=== PATIENT | female | born 1960 | race Caucasian/White ===

== ENCOUNTER 2018-08-09 16:07 | Emergency (ER) | payer OTHER ==
[2018-08-09 16:52] VITALS: BP 120/69
[2018-08-09] MEDS ORDERED: HYDROcodone/ACETAMIN 5-325 MG* 1 TAB PO ONE (17:07)
--- NOTE | 2018-08-09 18:04 | UC ---
Knee Pain HPI - HPI Summary HPI Summary: 58 year old female present with right knee pain. States she was at work and moved suddenly and pushed a coworker to avoid being hit by a falling plate glass window causing her to twist her right knee. States she felt something "pop " in the back of her knee, had sudden severe pain, and fell to floor unable to support her weight. She has been unable to bear weight since the injury. Complains of severe pain especially if she tries to extend the knee. She took ibuprofen 600 mg without relief from pain. Denies numbness or tingling. - History of Current Complaint Chief Complaint: UCLowerExtremity Stated Complaint: WC-RT KNEE INJURY Time Seen by Provider: 08/09/18 16:52 Hx Obtained From: Patient Hx Last Menstrual Period: n/a ?: No Onset/Duration: Sudden Onset Severity Initially: Moderate Severity Currently: Moderate Pain Intensity: 7 Character: Sharp, Aching Aggravating Factor(s): Movement Alleviating Factor(s): Nothing Associated Signs And Symptoms: Negative: Swelling, Redness, Bruising, Numbness, Tingling - Allergies/Home Medications Allergies/Adverse Reactions: Allergies Allergy/AdvReac Type Severity Reaction Status Date / Time Penicillins Allergy Swelling Verified 08/09/18 16:40 Of Face,Lips,& Throat PMH/Surg Hx/FS Hx/Imm Hx Previously Healthy: Yes - Denies significant PMH - Surgical History Surgical History: Yes Surgery Procedure, Year, and Place: c-sect x 3 - Family History Family History: Noncontributory - Social History Occupation: Employed Full-time Lives: With Family Alcohol Use: Occasionally Substance Use Type: None Smoking Status (MU): Never Smoked Tobacco Review of Systems Skin: Negative Respiratory: Negative Cardiovascular: Negative Neurovascular: Negative Musculoskeletal: Other: - See HPI Neurological: Negative Is Patient Immunocompromised?: No All Other Systems Reviewed And Are Negative: Yes Physical Exam Triage Information Reviewed: Yes Appearance: Well-Appearing, No Pain Distress, Obese Vital Signs: Initial Vital Signs Temp 97.8 F 08/09/18 16:42 Pulse 76 08/09/18 16:42 Resp 14 08/09/18 16:42 BP 120/69 08/09/18 16:42 Pulse Ox 98 08/09/18 16:42 Vital Signs Reviewed: Yes Respiratory: Positive: No respiratory distress Cardiovascular: Positive: Pulses Normal, Brisk Capillary Refill Musculoskeletal: Positive: No Edema, ROM Limited @ - right knee d/t pain, Other : - Tenderness to posterior right knee. No crepitus. Pain with passive ROM especially extension. No erythema, ecchymosis, or gross deformity. Neurological: Positive: Alert, Other: - Sensation intact distally. Skin Exam: Normal Diagnostics - Radiology No standard instances Radiology Interpretation Completed By: ED Physician - No acute process., Radiologist Summary of Radiographic Findings: Patient Name: MEAGHAN BEST Medical Record#: [id number]. Ordering Physician: Amari Cedillo NP Acct.#: [id number]. : 1960 Age: 58 Sex: F Location: [facility] [place]. Exam Date: 1706 ADM Status: DEP ER. Order Information: KNEE RIGHT 4+ VWS. Accession Number: [id number]. CPT: 54953. INDICATION: Right knee injury. TECHNIQUE: 4 views of the right knee were obtained. FINDINGS: The bones are in normal alignment. No joint effusion or fracture is seen. Joint spaces appear maintained. IMPRESSION: NO EVIDENCE FOR FRACTURE. Knee Pain Course/Dx - Course Course Of Treatment: 58 year old female with twisting injury to right knee. Tenderness to posterior knee with minimal swelling. Significant pain with extension and patient unable to bear weight. X-ray negative for osseous injury. Suspect ligamental injury. Patient was placed in a knee immobilizer and provided with crutches to remain non-weightbearing. Recommend conservative treatment with NSAIDs and RICE with hydrocodone-acetaminophen 5/325 PRN severe pain. She is to follow up with orthopedic surgery in 7 days for evaluation and treatment. Warning symptoms reviewed. Patient verbalizes understanding and agrees with POC. - Differential Dx/Diagnosis Differential Diagnosis/HQI/PQRI: Dislocation, Fracture (Closed), Sprain Provider Diagnoses: right knee pain Discharge - Sign-Out/Discharge Documenting (check all that apply): Patient Departure All imaging exams completed and their final reports reviewed: Yes - Discharge Plan Condition: Stable Disposition: HOME Prescriptions: Hydrocodone/Acetaminophen [Hydrocodone-Acetamin 5-325 mg] 1 each PO Q8HR PRN # 15 tablet MDD 3 PRN Reason: Severe Pain Naproxen [Naproxen 500 mg tab] 500 mg PO BID #30 tablet Patient Education Materials: Knee Sprain (ED), Crutch Instructions (ED), Knee Immobilizer (ED) Forms: *Work Release Referrals: Dena Wu MD [Primary Care Provider] - Darrell Rodriguez MD [Medical Doctor] - 7 Days (Call for appointment.) Additional Instructions: The X-ray of your knee was normal. I suspect that you have a severe sprain of the knee. Wear the knee immobilizer that was applied in the clinic. You may remove to shower and sleep but should use at all other times. Rest the knee. Do not bear weight until you have been evaluated by the orthopedic surgeon. Use the crutches provided. Apply ice to the knee for 15-20 minutes at least 4 times a day. Keep the leg elevated to reduce swelling. Take naproxen 1 tab with food every 12 hours for next 7 days to help with inflammation and pain. After 7 days you may take every 12 hours as needed for pain. Use hydrocodone-acetaminopehn 5 mg/325 mg 1 tab every 8 hours as needed for severe pain. This will cause drowsiness so do not take and drive or operate machinery. Follow up with Dr. Rodriguez, orthopedic surgery, within 7 days for evaluation. Call for appointment. Seek immediate medical attention in the emergency room if you have pain that is not managed with pain medication, have increased swelling of the knee, develop numbness or tingling in the leg, foot, or toes, or have any worsening of symptoms. - Billing Disposition and Condition Condition: STABLE Disposition: Home
== END 2018-08-09 18:40 | disposition home or self-care (01) ==
LOC: UCCORT 16:07
DX: M25.561 Pain in right knee (principal); Z88.0 Allergy status to penicillin
CPT/HCPCS: 99213; G0463